=== PATIENT | female | born 1970 | race Two or more races ===

== ENCOUNTER 2022-12-17 05:36 | Day surgery (SDC) | payer OTHER ==
[~2022-12-17] VITALS: Ht 165.1 cm; Wt 49.4 kg
[~2022-12-17 05:36] MED LIST: ABATINEX680 MG PO; CLONAZEPAM1 MG PO; GABAPENTIN800 M1 PO; LIALDA1.2 GM PO; PEPCID40 MG PO; PROZAC20 MG PO; RESTORIL30 MG PO; TOPAMAX25 MG PO
== END 2022-12-17 10:50 | disposition home or self-care (01) ==
LOC: CIR.AMB 05:36
PROVIDERS: ATTEND Anesthesiology Pain Medicine
DX: M47.816 Spondylosis without myelopathy or radiculopathy, lumbar region (principal); M51.36 Other intervertebral disc degeneration, lumbar region; Z20.822 Contact with and (suspected) exposure to COVID-19; Z88.2 Allergy status to sulfonamides; Z88.5 Allergy status to narcotic agent; Z91.011 Allergy to milk products